=== PATIENT | female | born 1985 | race Caucasian/White ===

== ENCOUNTER 2020-12-16 10:38 | Emergency (ER) | payer MEDICARE ==
[~2020-12-16] VITALS: Ht 147.3 cm; Wt 40.8 kg
[2020-12-16] MEDS ORDERED: HYDRALAZINE HCL 20 MG/ML VIAL IV STA ×2 (10:41→14:14)
[2020-12-16] MEDS ORDERED: LORAZEPAM INJ 2 MG/ML VIAL IV ONE (11:00)
[2020-12-16 11:18] LABS: BASOPHILS # (AUTO) 0.1 (0.0-0.1); BASOPHILS % 0.4 % (0.0-1.0); EOSINOPHILS # (AUTO) 0.1 (0.0-0.4); EOSINOPHILS % 0.5 % (0.0-6.0); HEMATOCRIT 30.8 % (34.2-44.1); HEMOGLOBIN 9.5 g/dL (12.0-16.0); LYMPHOCYTES # (AUTO) 0.5 (1.0-3.2); LYMPHOCYTES % 2.1 % (18.0-39.1); MEAN CORPUSCULAR HEMOGLOBIN 30.3 pg (28-32); MEAN CORPUSCULAR HGB CONC 30.8 g/dL (31-35); MEAN CORPUSCULAR VOLUME 98.1 fL (81-99); MONOCYTES # (AUTO) 0.9 (0.2-0.8); MONOCYTES % 3.8 % (4.4-11.3); NEUTROPHILS # (AUTO) 21.7 (2.1-6.9); NEUTROPHILS % 91.5 % (38.7-80.0); PLATELET COUNT 206 x10e3/uL (140-360); RED BLOOD COUNT 3.14 x10e6/uL (3.6-5.1); RED CELL DISTRIBUTION WIDTH 21.9 % (11.7-14.4)
[2020-12-16 11:40] LABS: ALBUMIN 3.3 g/dL (3.5-5.0); ALBUMIN/GLOBULIN RATIO 1.1 (0.8-2.0); ANION GAP 23.3 mmol/L (8-16); CALCIUM 9.6 mg/dL (8.4-10.2); CREATININE, SERUM 4.49 mg/dL (0.57-1.11)
[2020-12-16 11:43] LABS: POTASSIUM 6.3 mmol/L (3.5-5.1)
[2020-12-16] MEDS ORDERED: DEXTROSE 50% SYRINGE 50 ML IV STA (11:44)
[2020-12-16] MEDS ORDERED: CALCIUM GLUCONATE 10% INJ 0.465 MEQ/ML VIAL IV STA (11:44)
[2020-12-16] MEDS ORDERED: SOD POLYSTYRENE SULFONATE SUSP 15 GM/60 ML BTL PO STA (11:44)
[2020-12-16] MEDS ORDERED: ALBUTEROL SULF 0.083% NEB SOLN 3 ML NEB NEB STA (11:44)
[2020-12-16] MEDS ORDERED: INSULIN REGULAR, HUMAN 100 UNIT/1 ML SQ ONE (11:45)
[2020-12-16 11:58] LABS: INR 0.94
[2020-12-16] MEDS ORDERED: CALCIUM GLUCONATE 10% INJ 4.65 MEQ in SODIUM CHLORIDE 0.9% 50ML 50 ML IV ONE (12:00)
[2020-12-16] MEDS ORDERED: SOD POLYSTYRENE SULFONATE SUSP 15 GM/60 ML BTL PO ONE (12:15)
[2020-12-16 12:18] LABS: CREATINE KINASE MB 13.5 ng/mL (0-5.0)
[2020-12-16] MEDS ORDERED: DEXTROSE 50% SYRINGE 50 ML IV ONE ×2 (13:53→14:30)
[2020-12-16 14:10] VITALS: BP 160/89
== END 2020-12-16 14:11 ==
LOC: ER 10:43
DX: S00.83XA Contusion of other part of head, initial encounter (principal); W18.30XA Fall on same level, unspecified, initial encounter; Y92.128 Other place in nursing home as the place of occurrence of the external cause; R03.0 Elevated blood-pressure reading, without diagnosis of hypertension; I12.0 Hypertensive chronic kidney disease with stage 5 chronic kidney disease or end stage renal disease; N18.6 End stage renal disease; Z99.2 Dependence on renal dialysis; E16.2 Hypoglycemia, unspecified; E87.5 Hyperkalemia; G62.9 Polyneuropathy, unspecified; K21.9 Gastro-esophageal reflux disease without esophagitis; Z86.73 Personal history of transient ischemic attack (TIA), and cerebral infarction without residual deficits; R94.31 Abnormal electrocardiogram [ECG] [EKG]
CPT/HCPCS: 36415; 70450; 71045; 72125; 80053; 82140; 82550; 82553; 82948; 84484; 85025; 85610; 85730; 93005; 99284; J0360; J0610; J1817; J2060; J7799

== ENCOUNTER → 2022-05-11 | Outpatient (CLI) | payer MEDICARE, OTHER ==
[~2022-05-11] MED LIST: ACETAMINOPHEN650 MG PO; ACTEMRA162 MG/0.9; ALBUTEROL0.63 MG/3 NEB; ASPIRIN81 MG PO; ATORVASTATIN CA20 MG PO; CLONIDINE HCL0.3 MG PO; DOCUSATE SODIU100 MG PO; GLUCOSE15 GM/59 M; HYDRALAZINE HCL50 MG PO; LABETALOL HCL100 MG PO; LACTULOSE20 GM/30 M PO; MIDODRINE HCL5 MG PO; MINOXIDIL2.5 MG PO; MIRTAZAPINE7.5 MG PO; ONDANSETRON ODT4 MG PO; PREDNISONE5 MG PO; PROTONIX20 MG PO; PYRIDOXINE HCL25 MG PO; RENA-VITE TABL0.8 MG; RENAGEL800 MG PO; TERAZOSIN HCL5 MG PO
== END ==
LOC: RAD 13:16
PROVIDERS: ATTEND Internal Medicine
DX: M31.4 Aortic arch syndrome [Takayasu] (principal); I13.2 Hypertensive heart and chronic kidney disease with heart failure and with stage 5 chronic kidney disease, or end stage renal disease
CPT/HCPCS: 93306

== ENCOUNTER → 2022-06-08 | Day surgery (SDC) | payer MEDICARE ==
[~2022-06-08] MED LIST changes: +BENZOCAINE/TETRACAINE/BUTAMBEN AERO SPRAY 56 GM CAN ONE; +ETOMIDATE 2 MG/ML 10 ML INJ IV ONE; +FENTANYL CITRATE/PF 100MCG/2 ML INJ ONE; +POVIDONE IODINE 0.05% 0.05 % ML PO ONE; +PROPOFOL IV EMULSION 10 MG/ML 20 ML VIAL ONE; +SODIUM CHLORIDE 0.9% 500ML 500 ML ONE; +SUCRALFATE1 GM PO
[2022-06-08 10:18] LABS: BASOPHILS % 1.1 % (0.0-1.0); EOSINOPHILS # (AUTO) 0.2 (0.0-0.4); EOSINOPHILS % 4.9 % (0.0-6.0); HEMATOCRIT 41.4 % (34.2-44.1); HEMOGLOBIN 12.8 g/dL (12.0-16.0); LYMPHOCYTES # (AUTO) 1.3 (1.0-3.2); LYMPHOCYTES % 35.7 % (18.0-39.1); MEAN CORPUSCULAR HEMOGLOBIN 29.4 pg (28-32); MEAN CORPUSCULAR HGB CONC 30.9 g/dL (31-35); MONOCYTES # (AUTO) 0.6 (0.2-0.8); MONOCYTES % 16.8 % (4.4-11.3); NEUTROPHILS # (AUTO) 1.5 (2.1-6.9); NEUTROPHILS % 40.4 % (38.7-80.0); PLATELET COUNT 124 x10e3/uL (140-360); RED BLOOD COUNT 4.36 x10e6/uL (3.6-5.1); RED CELL DISTRIBUTION WIDTH 18.1 % (11.7-14.4)
[2022-06-08 10:40] LABS: PARTIAL THROMBOPLASTIN TIME 32.6 seconds (23.8-35.5)
[2022-06-08 10:44] LABS: ANION GAP 16.6 mmol/L (8-16); CALCIUM 9.6 mg/dL (8.4-10.2); CREATININE, SERUM 4.75 mg/dL (0.57-1.11); POTASSIUM 3.6 mmol/L (3.5-5.1)
[2022-06-08 11:12] LABS: INR 0.98; PROTHROMBIN TIME 13.5 seconds (11.9-14.5)
[2022-06-08 13:50] VITALS: BP 165/62
== END | disposition home or self-care (01) ==
LOC: OR 09:21
PROVIDERS: ATTEND Internal Medicine Gastroenterology
DX: Z43.1 Encounter for attention to gastrostomy (principal); K29.70 Gastritis, unspecified, without bleeding; K29.80 Duodenitis without bleeding; K26.9 Duodenal ulcer, unspecified as acute or chronic, without hemorrhage or perforation; K44.9 Diaphragmatic hernia without obstruction or gangrene; N18.6 End stage renal disease; F32.A Depression, unspecified; Z79.82 Long term (current) use of aspirin; Z79.899 Other long term (current) drug therapy; Z86.73 Personal history of transient ischemic attack (TIA), and cerebral infarction without residual deficits
CPT/HCPCS: 36415; 43239; 43247; 80048; 84702; 85025; 85610; 85730; 93005; C9113; J2704; J3010; J7040; 43246